=== PATIENT | male | born 1955 | race Caucasian/White ===

== ENCOUNTER → 2016-10-20 | Outpatient (CLI) | payer BC ==
[2016-10-20 09:42] LABS: ALT/SGPT 29 U/L (12-78); AST/SGOT 14 U/L (15-37); BLOOD UREA NITROGEN 12 mg/dl (7-18); BUN/CREATININE RATIO 13.7 (10-20); CALCIUM 8.6 mg/dl (8.5-10.1); CARBON DIOXIDE 28 mmol/L (21-32); CHLORIDE 109 mmol/L (98-107); CREATININE 0.88 mg/dl (0.60-1.40); GLUCOSE 104 mg/dl (70-99); POTASSIUM 4.1 mmol/L (3.5-5.1); SODIUM 142 mmol/L (136-145)
[2016-10-20 09:47] LABS: CHOLESTEROL 187 mg/dl (0-200); CHOLESTEROL/HDL RATIO 3.5; HDL CHOLESTEROL 53 mg/dl; LDL CHOLESTEROL CALCULATED 114 mg/dl; TRIGLYCERIDES 102 mg/dl (0-150); VERY LOW DENSITY LIPOPROT CALC 20 mg/dl
[2016-10-20 10:03] LABS: ESTIMATED AVERAGE GLUCOSE 123 mg/dl; HA1C FLAG Normal (Normal)
== END | disposition home or self-care (01) ==
LOC: C.LAB 07:06
PROVIDERS: ATTEND Internal Medicine
DX: R73.01 Impaired fasting glucose (principal); E78.5 Hyperlipidemia, unspecified; Z12.5 Encounter for screening for malignant neoplasm of prostate

== ENCOUNTER → 2016-10-24 | Outpatient (CLI) | payer BC ==
--- NOTE | 2016-10-24 08:50 | DIAGNOSTIC IMAGING REPORT ---
CHEST 2 VIEWS ROUTINE HISTORY: Cough. COMPARISON: None. FINDINGS: The lungs are clear. Cardiac silhouette is normal in size. No pleural effusions. No pneumothorax. IMPRESSION: No acute process. Electronically signed by: Johnny Tian M.D. 10/24/2016 8:49 AM Dictated Date/Time: 10/24/2016 8:47 AM
== END | disposition home or self-care (01) ==
LOC: C.RAD1850 08:29
PROVIDERS: ATTEND Internal Medicine
DX: R05 Cough (principal)

== ENCOUNTER 2024-05-02 15:19 | Observation (INO) ==
[2024-05-02 15:51] LABS: Basophils # (auto) 0.03 K/uL (0.00-0.20); Basophils % (auto) 0.7 %; Eosinophils # (auto) 0.17 K/uL (0.00-0.50); Eosinophils % (auto) 4.2 %; Hematocrit (blood only) 44.7 % (42.0-52.0); Hemoglobin 15.2 g/dl (14.0-18.0); Immature Granulocytes # (auto) 0.01 K/uL (0.01-0.20); Immature Granulocytes % (auto) 0.2 %; Lymphocytes # (auto) 0.96 K/uL (1.20-3.40); Lymphocytes % (auto) 23.6 %; Mean Corpuscular Hemoglobin 32.1 pg (25.0-34.0); Mean Corpuscular Volume 94.3 fL (80.0-100.0); Mean Platelet Volume 9.6 fL (9.4-12.4); Monocytes # (auto) 0.49 K/uL (0.11-0.59); Monocytes % (auto) 12.1 %; Neutrophils % (auto) 59.2 %; Platelet Count 215 K/uL (130-400); RDW Coefficient of Variation 12.3 % (11.5-14.5); Red Blood Count 4.74 M/uL (4.70-6.10); White Blood Count 4.06 K/ul (4.8-10.8)
--- NOTE | 2024-05-02 16:02 | XRay Report ---
XR chest 1V not portable HISTORY: 68 years-old Male Chest pain, nonspecific COMPARISON: 11/15/2021 TECHNIQUE: PA view the chest FINDINGS: Cardiac silhouette is normal in size. Lungs appear clear. No pneumothorax or pleural effusion. Spondy lotic spurring of the spine. IMPRESSION: No acute process of the chest. ACT 112: Negative or not required by law. The above report was generated using voice recognition software. It may contain grammatical, syntax o r spelling errors. Electronically signed by: Chang Sarmiento M.D. 05/02/2024 3:58 PM
[2024-05-02 16:06] LABS: Albumin Globulin Ratio 1.7 (0.9-2); BUN Creatinine Ratio 18.6 (10-20); Bilirubin,Total 0.5 mg/dl (0.2-1.0); Calcium 9.2 mg/dl (8.6-10.3); Creatinine Clr Calc Pharmacy 81.1 ml/min; Globulin 2.4 gm/dl (2.5-4.0); Potassium 4.6 mmol/L (3.5-5.1); Total Protein 6.4 gm/dl (6.0-8.3)
[2024-05-02 16:12] LABS: Troponin I High Sensitivity 8.9 pg/ml (0-20)
[2024-05-02 16:15] LABS: Partial Thromboplastin Time 26 Seconds (21-31); Prothrombin Time 10.7 Seconds (9.0-12.0)
[2024-05-02 17:25] LABS: D Dimer 220 ug/L FEU (0-500)
[2024-05-02] MEDS: OPTIRAY 320 100ml IV ONE (17:38)
--- NOTE | 2024-05-02 17:52 | CT Scan Report ---
EXAM: CT Abdomen and Pelvis With Intravenous Contrast INDICATION: Intermittent upper abdominal pain. TECHNIQUE: Axial computed tomography images of the abdomen and pelvis with intravenous contrast. Sagittal and coronal reformatted images were created and reviewed. This CT exam was performed using one or more of the following dose reduction techniques: automated exposure control, adjustment of the mA and/or kV according to patient size, and/or use of iterative reconstruction technique. CONTRAST: 94ml of Optiray 320 was administered intravenously. COMPARISON: 11/01/2021 FINDINGS: Limitations: None. Lung bases: No abnormality noted. Pleural space: No visualized pleural effusion or pneumothorax. Heart: No abnormality noted. Mediastinum: No abnormality noted. ABDOMEN: Liver: No abnormality noted. Gallbladder and bile ducts: The gallbladder is mildly distended and thickened. There is mild thickening of the common bile duct without distention. No no calcified stones in the gallbladder or common bile duct. Pancreas: Homogeneous enhancement. No mass, inflammation or ductal dilation. Spleen: No significant abnormality noted. Adrenals: No significant abnormality noted. Kidneys and ureters: Simple bilateral renal cysts noted. No follow-up necessary. No stones or hydronephrosis. Mild bilateral renal cortical scarring. No stones or hydronephrosis. Stomach and bowel: Moderate amounts of colonic stool in the redundant colon. No obstruction, inflammation or intestinal thickening. PELVIS: Appendix: No findings to suggest acute appendicitis. Bladder: No filling defects to suggest mass or large stone. No inflammation. Reproductive: No abnormalities noted. ABDOMEN and PELVIS: Intraperitoneal space: No free air. No significant fluid collection. Bones/joints: Intact posterior L3-S1 spinal fusion rods and pedicle screws. Degenerative changes noted in the spine. No acute osseous abnormality. Soft tissues: No significant abnormality noted. Vasculature: There is mild atherosclerotic calcification in the ectatic aorta and branches. No aneurysm or dissection. Lymph nodes: No pathologically enlarged lymph nodes. IMPRESSION: 1. Abnormal gallbladder and common bile duct most concerning for acute cholecystitis and possible cholangitis. Ultrasound recommended to further assess. 2. Moderate stool throughout the redundant colon without obstruction. ACT 112: Negative or not required by law. Electronically signed by Radha Renteria 05-02-2024 5:51 PM
--- NOTE | 2024-05-02 21:21 | Ultrasound Report ---
Exam(s): US GALLBLADDER EXAM: US Abdomen Limited, Right Upper Quadrant CLINICAL HISTORY: Reason for exam: ro manny. TECHNIQUE: Real-time ultrasound of the right upper quadrant with image documentation. COMPARISON: CT May 02, 2024 FINDINGS: Liver: Unremarkable. No mass. Gallbladder: Gallbladder is distended with mild mucosal thickening. No sonographically evident stone. Negative Rucker's. Common bile duct: Common bile duct is 4 mm. Pancreas: Pancreas is obscured by shadowing bowel gas. Right kidney: Unremarkable. No hydronephrosis. IMPRESSION: Gallbladder is distended with mild mucosal thickening. No sonographically evident stone. Negative Rucker's. Electronically signed by: Arash Rodriguez MD 05/02/24 21:20 PM
--- NOTE | 2024-05-02 21:46 | History & Physical Report ---
Date of Service May 02, 2024 Assessment & Plan (1) Abdominal pain: Plan: 68yo male with history of HTN, HLP and impaired fasting glucose presenting with 8 days of intermittent abdominal pain with radiation into the chest. Labs are unremarkable including no leukocytosis, normal LFTs. Exam with some mild lower abdominal tenderness. No RUQ pain. No epigastric pain. Imaging findings as above - some concern for abnormal appearing CBD and gallbladder noted on CT. No abnormalities noted on US. Ddx to consider include GERD, biliary dyskinesia, ?constipation/gas pains. Do not feel that this discomfort is cardiac - troponin x 1 is NEGATIVE with 8 days of intermittent symptoms, EKG is unremarkable. -Observation to medical -Repeat troponin, BMP/CBC and LFTs in AM -Initiate Protonix 40mg po daily -Initiate Simethicone PRN -Bowel regimen with Miralax PRN -Tylenol PRN pain -GI consultation appreciated - ?additional imaging studies needed- MRCP vs HIDA?. Some concern that patient notes 4# weight loss with onset of these symptoms (2) Hypertension: Plan: Managed with diet -Continue to monitor -Pain control as needed (3) Hyperlipidemia: Plan: Managed with diet. History of Present Illness Chief Complaint: abdominal pain, chest discomfort Primary Care Provider: Derick Collins MD Chinedu Das is a pleasant 68yo male with history of HTN, HLP and impaired fasting glucose presenting with abdominal pain, bloating. Patient reports that over the last 8 days he has been experiencing frequent episodes of lower abdominal discomfort which he feels to be gas pains. The discomfort at times involves his left chest, shoulder and arm as well. Discomfort in his chest is described as a squeezing pressure sensation, some shortness of breath associated with the discomfort. He has had increased eructation as well. These episodes have been occurring multiple times per day over the last 8 days. The severe pain lasts appx 5-10 minutes with complete resolution of discomfort typically within 1-2 hours. Symptoms typically occur when laying down but can occur any time during the day. No clear association to meals. Patient reports normal appetite and no change in PO intake - eats [id number] calories per day Denies nausea, vomiting or diarrhea No recent GI illness but has had some mild URI symptoms - congestion ongoing for the last 2 weeks. He has had some constipation - last BM was yesterday. No new medications or supplements. He does report approximately 4# of unintentional weight loss over the last 8 days. This evening patient had severe pain in the abdomen and left chest and was unable to walk due to his discomfort. Now improved, no return of the pain since being in the ER. is at bedside and is concerned about patient going home this evening given the severity of the pain he had earlier today. Allergies Allergy/AdvReac Type Severity Reaction Status Date / Time amoxicillin [From Augmentin] AdvReac Intermediate nausea & Verified 05/02/24 14:41 vomiting clavulanic acid AdvReac Intermediate nausea & Verified 05/02/24 14:41 [From Augmentin] vomiting Home Medications Medication Instructions Recorded Confirmed Type acetaminophen 500 mg tablet 500 - 1,000 mg PO DAILY PRN pain 02/12/23 05/02/24 History ibuprofen 200 mg tablet (Advil) 200 - 400 mg PO DAILY PRN Pain 02/12/23 05/02/24 History Antacid 1 tab PO DIRECTED PRN heart burn 05/02/24 05/02/24 History Past Med/Surg History Problem List Abdominal pain Osteoarthritis (Acute) Impaired fasting glucose (Acute) Per PCP records Hypertension (Acute) Per PCP records Hyperlipidemia (Acute) Per PCP records Lumbar stenosis with neurogenic claudication Moderate to severe at L3-4 Neurogenic claudication Scoliosis Osteoporosis Vitamin D deficiency Encounter for pre-operative examination History of colon polyps Rotator cuff arthropathy Biceps tendon rupture, proximal Right groin hernia Arthritis Back problem Status post lumbar spinal fusion L3-S1 laminectomy and fusion 01/31/2022 Dr. [facility] Medical History Right sided abdominal pain Right flank pain Low vitamin B12 level Retinal detachment Surgical History H/O right inguinal hernia repair (11/10/21) Open Right Inguinal Hernia Repair With Mesh(Right) - Korey Arcos MD, FACS Hx of colonoscopy with polypectomy S/P epidural steroid injection [place] teeth removed H/O eye surgery BILATERAL TO "FIX FLOATERS" H/O right knee surgery H/O eye surgery RT History of detached retina repair LT H/O bilateral cataract extraction Family History Grandfather (Maternal) Myocardial infarction Father Prostate cancer Cerebral artery occlusion Mother Alzheimer disease Dementia Other No family history of adverse response to anesthesia Denies family history of Colon cancer Ovarian cancer Breast cancer Social History Smoking Status: Light tobacco smoker Tobacco Type: Pipe Cigarettes Per Day: CIGAR USE 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; Second Hand Exposure: Yes; Do You Dip or Chew Tobacco: No; Hx Alcohol Use: Yes Alcohol type: wine Alcohol type Comment: 1-2 liters a week Alcohol Intake Frequency: 4 or More x per/Week Alcohol Intake Frequency Comment: socially Hx Substance Use: No Preferred Language: Grenadian Communication Ability: Effective Visual Impairment: No Limitations Hearing Ability: Normal [employer] Operator Required: No Beliefs That Will Affect Care: None marital status: Current Living Situation: Spouse current occupational status: retired current occupation: Works for [employer] at a [place] job How many Children do You have: 1 Feels Safe at Home: Yes Safety Concerns: Feels Safe At This Time Childhood Exposure to Second-Hand Smoke: Yes Diet: regular during the past year weight has: decreased > 10 lbs Dental Care, Regularly: Yes Physical Activity Frequency: 5-6 Times per Week Seatbelt Use: always Sunscreen Use: No Assistive Devices: Glasses Review of Systems Review of Systems: All systems reviewed & are unremarkable except as noted in HPI & below Physical Exam Physical Exam: General: patient resting comfortably, NAD, non-toxic in appearance, AA&O x 4 Skin: warm, dry, intact, no rashes or lesions HEENT: NC/AT, PERRL, EOMI, anicteric sclera, conjunctiva without injection, external ear normal to inspection and nontender, nares patent, moist mucus membranes, dentition intact, no oropharyngeal lesions, neck supple, trachea midline, no LAD, no thyromegaly, no JVD Heart: +S1/S2, regular, no m/r/g Lungs: equal air entry bilaterally, no rales/rhonchi/wheezes Abd: +BS, soft, ND, mildly tender to palpation in lower abdomen RLQ/LLQ without rebound/guarding/peritonitis, no masses/organomegaly/ascites Ext: warm, 2+ pulses in UE/LE bilaterally, no clubbing/cyanosis or edema Neuro: nonfocal, patient AA&O x 4, speech intact, no facial droop, moving all extremities on command with equal strength 5/5 Results & Data Results & Data Vital Signs (Past 12 Hours) Vital Signs Temp Pulse Pulse Resp BP BP Pulse Ox 05/02/24 21:33 56 L 14 126/87 98 05/02/24 20:30 60 05/02/24 20:00 75 20 129/85 99 05/02/24 19:00 62 16 109/73 98 05/02/24 17:19 63 16 133/76 97 05/02/24 16:47 58 L 20 95 05/02/24 16:04 54 L 05/02/24 15:23 36.4 C L 60 18 140/87 97 O2 Del Method 05/02/24 21:33 Room Air 05/02/24 20:30 05/02/24 20:00 Room Air 05/02/24 19:00 Room Air 05/02/24 17:19 Room Air 05/02/24 16:47 Room Air 05/02/24 16:04 05/02/24 15:23 Room Air Laboratory Results Laboratory Results WBC 4.06 K/ul (4.8-10.8) L 05/02/24 15:30 RBC 4.74 M/uL (4.70-6.10) 05/02/24 15:30 Hgb 15.2 g/dl (14.0-18.0) 05/02/24 15:30 Hct 44.7 % (42.0-52.0) 05/02/24 15:30 MCV 94.3 fL (80.0-100.0) 05/02/24 15:30 MCH 32.1 pg (25.0-34.0) 05/02/24 15:30 MCHC 34.0 g/dL (32.0-36.0) 05/02/24 15:30 RDW Std Deviation 43.0 fL (36.4-46.3) 05/02/24 15:30 RDW Coeff of Soheila 12.3 % (11.5-14.5) 05/02/24 15:30 Plt Count 215 K/uL (130-400) 05/02/24 15:30 MPV 9.6 fL (9.4-12.4) 05/02/24 15:30 Immature Gran % (Auto) 0.2 % 05/02/24 15:30 Neut % (Auto) 59.2 % 05/02/24 15:30 Lymph % (Auto) 23.6 % 05/02/24 15:30 [place] % (Auto) 12.1 % 05/02/24 15:30 Eos % (Auto) 4.2 % 05/02/24 15:30 Baso % (Auto) 0.7 % 05/02/24 15:30 Neut # (Auto) 2.40 K/uL (1.40-6.50) 05/02/24 15:30 Lymph # (Auto) 0.96 K/uL (1.20-3.40) L 05/02/24 15:30 [place] # (Auto) 0.49 K/uL (0.11-0.59) 05/02/24 15:30 Eos # (Auto) 0.17 K/uL (0.00-0.50) 05/02/24 15:30 Baso # (Auto) 0.03 K/uL (0.00-0.20) 05/02/24 15:30 Immature Gran # (Auto) 0.01 K/uL (0.01-0.20) 05/02/24 15:30 PT 10.7 Seconds (9.0-12.0) 05/02/24 15:30 INR 1.0 (0.9-1.1) 05/02/24 15:30 APTT 26 Seconds (21-31) 05/02/24 15:30 PTT Ratio 1.0 05/02/24 15:30 D-Dimer 220 ug/L FEU (0-500) 05/02/24 15:30 Sodium 139 mmol/L (136-145) 05/02/24 15:30 Potassium 4.6 mmol/L (3.5-5.1) 05/02/24 15:30 Chloride 106 mmol/L (98-107) 05/02/24 15:30 Carbon Dioxide 28 mmol/L (21-32) 05/02/24 15:30 Anion Gap 5 (3-11) 05/02/24 15:30 BUN 16 mg/dl (6-23) 05/02/24 15:30 Creatinine 0.86 mg/dl (0.6-1.4) 05/02/24 15:30 Est Cr Clr Drug Dosing 81.1 ml/min 05/02/24 15:30 eGFR 93.73 05/02/24 15:30 BUN/Creatinine Ratio 18.6 (10-20) 05/02/24 15:30 Glucose 97 mg/dl (70-99(Fasting)) 05/02/24 15:30 Calcium 9.2 mg/dl (8.6-10.3) 05/02/24 15:30 Total Bilirubin 0.5 mg/dl (0.2-1.0) 05/02/24 15:30 AST 16 U/L (13-39) 05/02/24 15:30 ALT 15 U/L (7-52) 05/02/24 15:30 Alkaline Phosphatase 50 U/L (34-104) 05/02/24 15:30 Troponin I High Sens 8.9 pg/ml (0-20) 05/02/24 15:30 Total Protein 6.4 gm/dl (6.0-8.3) 05/02/24 15:30 Albumin 4.0 gm/dl (3.4-5.0) 05/02/24 15:30 Globulin 2.4 gm/dl (2.5-4.0) L 05/02/24 15:30 Albumin/Globulin Ratio 1.7 (0.9-2) 05/02/24 15:30 Impressions Chest X-Ray 05/02/24 15:26 XR chest 1V not portable HISTORY: 68 years-old Male Chest pain, nonspecific COMPARISON: 11/15/2021 TECHNIQUE: PA view the chest FINDINGS: Cardiac silhouette is normal in size. Lungs appear clear. No pneumothorax or pleural effusion. Spondylotic spurring of the spine. IMPRESSION: No acute process of the chest. ACT 112: Negative or not required by law. The above report was generated using voice recognition software. It may contain grammatical, syntax or spelling errors. Electronically signed by: Chang Sarmiento M.D. 05/02/2024 3:58 PM Abdomen/Pelvis CT 05/02/24 16:49 EXAM: CT Abdomen and Pelvis With Intravenous Contrast INDICATION: Intermittent upper abdominal pain. TECHNIQUE: Axial computed tomography images of the abdomen and pelvis with intravenous contrast. Sagittal and coronal reformatted images were created and reviewed. This CT exam was performed using one or more of the following dose reduction techniques: automated exposure control, adjustment of the mA and/or kV according to patient size, and/or use of iterative reconstruction technique. CONTRAST: 94ml of Optiray 320 was administered intravenously. COMPARISON: 11/01/2021 FINDINGS: Limitations: None. Lung bases: No abnormality noted. Pleural space: No visualized pleural effusion or pneumothorax. Heart: No abnormality noted. Mediastinum: No abnormality noted. ABDOMEN: Liver: No abnormality noted. Gallbladder and bile ducts: The gallbladder is mildly distended and thickened. There is mild thickening of the common bile duct without distention. No no calcified stones in the gallbladder or common bile duct. Pancreas: Homogeneous enhancement. No mass, inflammation or ductal dilation. Spleen: No significant abnormality noted. Adrenals: No significant abnormality noted. Kidneys and ureters: Simple bilateral renal cysts noted. No follow-up necessary. No stones or hydronephrosis. Mild bilateral renal cortical scarring. No stones or hydronephrosis. Stomach and bowel: Moderate amounts of colonic stool in the redundant colon. No obstruction, inflammation or intestinal thickening. PELVIS: Appendix: No findings to suggest acute appendicitis. Bladder: No filling defects to suggest mass or large stone. No inflammation. Reproductive: No abnormalities noted. ABDOMEN and PELVIS: Intraperitoneal space: No free air. No significant fluid collection. Bones/joints: Intact posterior L3-S1 spinal fusion rods and pedicle screws. Degenerative changes noted in the spine. No acute osseous abnormality. Soft tissues: No significant abnormality noted. Vasculature: There is mild atherosclerotic calcification in the ectatic aorta and branches. No aneurysm or dissection. Lymph nodes: No pathologically enlarged lymph nodes. IMPRESSION: 1. Abnormal gallbladder and common bile duct most concerning for acute cholecystitis and possible cholangitis. Ultrasound recommended to further assess. 2. Moderate stool throughout the redundant colon without obstruction. ACT 112: Negative or not required by law. Electronically signed by Radha Renteria 05-02-2024 5:51 PM Gallbladder Ultrasound 05/02/24 18:04 Exam(s): US GALLBLADDER EXAM: US Abdomen Limited, Right Upper Quadrant CLINICAL HISTORY: Reason for exam: ro manny. TECHNIQUE: Real-time ultrasound of the right upper quadrant with image documentation. COMPARISON: CT May 02, 2024 FINDINGS: Liver: Unremarkable. No mass. Gallbladder: Gallbladder is distended with mild mucosal thickening. No sonographically evident stone. Negative Rucker's. Common bile duct: Common bile duct is 4 mm. Pancreas: Pancreas is obscured by shadowing bowel gas. Right kidney: Unremarkable. No hydronephrosis. IMPRESSION: Gallbladder is distended with mild mucosal thickening. No sonographically evident stone. Negative Rucker's. Electronically signed by: Arash Rodriguez MD 05/02/24 21:20 PM PG Care Time/CCT Total # of Minutes Spent Total Time Spent with Patient: Total time spent is greater than 50% in coordination of care (as documented) at patient's floor/unit and/or counseling patient: Coding Level of Care Code 65169 INT INP/OBS CARE 2/55MIN Diagnoses Abdominal pain R10.9 Hypertension I10 Hyperlipidemia E78.5
[2024-05-02] MEDS ORDERED: ONDANSETRON INJ 2 MG/ML 2 ML VIAL IV PRN (23:21)
[2024-05-02] MEDS: POLYETHYLENE (MIRALAX) 17 GM PACK PO STA (23:47)
[2024-05-02] MEDS: SIMETHICONE 80 MG CHEW PO PRN (23:47)
[2024-05-02] MEDS: ACETAMINOPHEN 325 MG TAB PO PRN (23:47)
--- NOTE | 2024-05-03 00:01 | Emergency Department Note ---
History of Present Illness General Chief Complaint: Chest Pain Stated Complaint: LT CHEST PAIN, ABD PAIN, LT SHOULDER PAIN Time Seen by Provider: 05/02/24 16:23 History of Present Illness Provider Complaint: abdominal pain Onset (ago): 1 week(s) Pain Consistency: intermittent Location: LLQ Radiation: chest Severity: moderate Maximum Pain Intensity: 4 Current Pain Intensity: 4 Quality: + stabbing and + sharp Relieved By: + nothing Exacerbated By: + nothing Context: no foreign travel, no possible food poisoning, no sick contacts, no recent antibiotic use, no recent surgery/procedure or no recent injury Associated Symptoms: + chest pain and + breathing difficulty; no nausea, no vomiting, no diarrhea, no fever, no chills, no constipation, no dysuria, no hematemesis, no melena, no hematuria and no back pain Home Medications Medication Instructions Recorded Confirmed Type acetaminophen 500 mg tablet 500 - 1,000 mg PO DAILY PRN pain 02/12/23 05/02/24 History ibuprofen 200 mg tablet (Advil) 200 - 400 mg PO DAILY PRN Pain 02/12/23 05/02/24 History Antacid 1 tab PO DIRECTED PRN heart burn 05/02/24 05/02/24 History Allergies Allergy/AdvReac Type Severity Reaction Status Date / Time amoxicillin [From Augmentin] AdvReac Intermediate nausea & Verified 05/02/24 14:41 vomiting clavulanic acid AdvReac Intermediate nausea & Verified 05/02/24 14:41 [From Augmentin] vomiting Past Med/Surg History Problem List Abdominal pain (Acute) Chest pain (Acute) Abdominal pain Osteoarthritis (Acute) Impaired fasting glucose (Acute) Per PCP records Hypertension (Acute) Per PCP records Hyperlipidemia (Acute) Per PCP records Lumbar stenosis with neurogenic claudication Moderate to severe at L3-4 Neurogenic claudication Scoliosis Osteoporosis Vitamin D deficiency Encounter for pre-operative examination History of colon polyps Rotator cuff arthropathy Biceps tendon rupture, proximal Right groin hernia Arthritis Back problem Status post lumbar spinal fusion L3-S1 laminectomy and fusion 01/31/2022 Dr. Kimble [facility] Medical History Right sided abdominal pain Right flank pain Low vitamin B12 level Retinal detachment Surgical History H/O right inguinal hernia repair (11/10/21) Open Right Inguinal Hernia Repair With Mesh(Right) - Korey Arcos MD, FACS Hx of colonoscopy with polypectomy S/P epidural steroid injection [place] teeth removed H/O eye surgery BILATERAL TO "FIX FLOATERS" H/O right knee surgery H/O eye surgery RT History of detached retina repair LT H/O bilateral cataract extraction Family History Grandfather (Maternal) Myocardial infarction Father Prostate cancer Cerebral artery occlusion Mother Alzheimer disease Dementia Other No family history of adverse response to anesthesia Denies family history of Colon cancer Ovarian cancer Breast cancer Social History Smoking Status: Light tobacco smoker Tobacco Type: Pipe Cigarettes Per Day: CIGAR USE 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; Second Hand Exposure: Yes; Do You Dip or Chew Tobacco: No; Hx Alcohol Use: Yes Alcohol type: wine Alcohol type Comment: 1-2 liters a week Alcohol Intake Frequency: 4 or More x per/Week Alcohol Intake Frequency Comment: socially Hx Substance Use: No Preferred Language: Lithuanian Communication Ability: Effective Visual Impairment: No Limitations Hearing Ability: Normal Termite Renewal Inspector Required: No Beliefs That Will Affect Care: None marital status: Current Living Situation: Spouse current occupational status: retired current occupation: Works for [employer] at a [employer] job How many Children do You have: 1 Feels Safe at Home: Yes Safety Concerns: Feels Safe At This Time Childhood Exposure to Second-Hand Smoke: Yes Diet: regular during the past year weight has: decreased > 10 lbs Dental Care, Regularly: Yes Physical Activity Frequency: 5-6 Times per Week Seatbelt Use: always Sunscreen Use: No Assistive Devices: Glasses Physical Exam 2 Vital Signs: Vital Signs - 24 hr 05/02/24 15:23 05/02/24 16:04 05/02/24 16:47 Temperature 36.4 C L Temperature Source Temporal Artery Sc an Pulse Rate 60 54 L 58 L Pulse Rate [Apical ] Pulse Rhythm [Apic al] Pulse Strength [Ap ical] Respiratory Rate 18 20 Respiratory Effort / Characteristics Non-Labored Sponta neous Respiratory Depth Normal Respiratory Patter n Regular Blood Pressure 140/87 Blood Pressure [Ri ght Arm] Blood Pressure Neha n 104 Blood Pressure Neha n [Right Arm] Blood Pressure Pos ition [Right Arm] Pulse Oximetry 97 95 Oxygen Delivery Me thod Room Air Room Air Sepsis Recent Feve r Within 48 Hours No Sepsis New/Unexpla ined Change in Men casi Status N/A Sepsis Action Take n by Nursing No Action Required 05/02/24 17:19 05/02/24 19:00 05/02/24 20:00 Temperature Temperature Source Pulse Rate Pulse Rate [Apical ] 63 62 75 Pulse Rhythm [Apic al] Regular Pulse Strength [Ap ical] Normal Respiratory Rate 16 16 20 Respiratory Effort / Characteristics Non-Labored Non-Labored Non-Labored Respiratory Depth Normal Normal Normal Respiratory Patter n Regular Regular Regular Blood Pressure Blood Pressure [Ri ght Arm] 133/76 109/73 129/85 Blood Pressure Neha n Blood Pressure Neha n [Right Arm] 95 85 99 Blood Pressure Pos ition [Right Arm] Lying Pulse Oximetry 97 98 99 Oxygen Delivery Me thod Room Air Room Air Room Air Sepsis Recent Feve r Within 48 Hours Sepsis New/Unexpla ined Change in Men casi Status Sepsis Action Take n by Nursing 05/02/24 20:30 05/02/24 21:33 Temperature Temperature Source Pulse Rate 60 56 L Pulse Rate [Apical ] Pulse Rhythm [Apic al] Pulse Strength [Ap ical] Respiratory Rate 14 Respiratory Effort / Characteristics Respiratory Depth Respiratory Patter n Blood Pressure 126/87 Blood Pressure [Ri ght Arm] Blood Pressure Neha n 100 Blood Pressure Neha n [Right Arm] Blood Pressure Pos ition [Right Arm] Pulse Oximetry 98 Oxygen Delivery Me thod Room Air Sepsis Recent Feve r Within 48 Hours Sepsis New/Unexpla ined Change in Men casi Status Sepsis Action Take n by Nursing Physical Exam: Physical Exam GENERAL: oriented to person, place, and time. appears well-developed and well- nourished. She does not appear distressed. HENT: Exam performed. -Head: Normocephalic and atraumatic. -Right Ear: External ear normal. No mastoid erythema -Left Ear: External ear normal. No mastoid erythema -Mouth/Throat: The oropharynx is clear and moist. No trismus in the jaw. No dental abscesses or uvula swelling. No oropharyngeal exudate or tonsillar abscesses. EYES: Conjunctivae and EOM are normal.Right eye exhibits no discharge. Left eye exhibits no discharge. No scleral icterus. NECK: Normal range of motion. Neck supple. No JVD present. No tracheal deviation and normal range of motion present. CV: Normal rate, regular rhythm, normal heart sounds and intact distal pulses. There is no peripheral edema. Palpable radial pulses bue. PULM/CHEST: Effort normal and breath sounds normal. No respiratory distress. No stridor. no wheezes.no rales. -Chest Wall: no tenderness to palpation ABD: The abdomen is soft. Bowel sounds are normal. no distension. No mass is present. There is tenderness to palpation of left lower quadrant. There is no rebound, no guarding, no Rucker's sign and no tenderness at McBurney's point. Rovsig negative MUSC/SKEL: Normal range of motion. There is no peripheral edema, tenderness or deformity. NEURO: Motor and sensation grossly intact. SKIN: Skin is warm and dry. not diaphoretic. PSYCH: normal mood and affect. Behavior is normal. Judgment and thought content normal. Course Course 1623: The patient was evaluated in room . A complete history and physical exam was performed Cardiac monitoring: An order was placed for continuous cardiac monitoring. The monitor shows a rate of 60 with sinus rhythm interpreted by me 1800: Vital signs stable. Labs unremarkable. Imaging makes note that there is a possibility of cholecystitis versus cholangitis. Patient not having any right upper quadrant abdominal pain and LFTs are within normal limits no jaundice. Will obtain ultrasound of the right upper quadrant. 2100: Vital signs stable. Right upper quadrant ultrasound viewed by me shows no cholecystitis. Patient was offered inpatient observation versus outpatient follow-up with GI and cardiology. After long discussion, and patient elected to be admitted for inpatient evaluation by cardiology and GI. Administered Medications Acetaminophen (Acetaminophen 325 Mg Tab) 650 mg PO Q4H PRN PRN Reason: Pain or Fever Stop: 06/01/24 23:20 Last Admin: 05/02/24 23:47 Dose: 650 mg Documented By: JHONATAN Simethicone (Simethicone 80 Mg Chew) 80 mg PO Q6H PRN PRN Reason: Flatulence Stop: 06/01/24 23:20 Last Admin: 05/02/24 23:47 Dose: 80 mg Documented By: JHONATAN Discontinued Medications Ioversol (Optiray 320 100ml) 94 ml IV ONCE ONE Stop: 05/02/24 17:39 Last Admin: 05/02/24 17:38 Dose: 94 ml Documented By: SONY Polyethylene Glycol (Polyethylene (Miralax) 17 Gm Pack) 17 gm PO NOW STA Stop: 05/02/24 23:22 Last Admin: 05/02/24 23:47 Dose: 17 gm Documented By: JHONATAN Medical Decision Making Laboratory Data Attestation: I reviewed the patient's lab results. 05/02/24 15:30 05/02/24 15:30 Lab Results 05/02/24 Range/Units 15:30 WBC 4.06 L (4.8-10.8) K/ul RBC 4.74 (4.70-6.10) M/uL Hgb 15.2 (14.0-18.0) g/dl Hct 44.7 (42.0-52.0) % MCV 94.3 (80.0-100.0) fL MCH 32.1 (25.0-34.0) pg MCHC 34.0 (32.0-36.0) g/dL RDW Std Deviation 43.0 (36.4-46.3) fL RDW Coeff of Soheila 12.3 (11.5-14.5) % Plt Count 215 (130-400) K/uL MPV 9.6 (9.4-12.4) fL Immature Gran % (Auto) 0.2 % Neut % (Auto) 59.2 % Lymph % (Auto) 23.6 % [place] % (Auto) 12.1 % Eos % (Auto) 4.2 % Baso % (Auto) 0.7 % Neut # (Auto) 2.40 (1.40-6.50) K/uL Lymph # (Auto) 0.96 L (1.20-3.40) K/uL [place] # (Auto) 0.49 (0.11-0.59) K/uL Eos # (Auto) 0.17 (0.00-0.50) K/uL Baso # (Auto) 0.03 (0.00-0.20) K/uL Immature Gran # (Auto) 0.01 (0.01-0.20) K/uL PT 10.7 (9.0-12.0) Seconds INR 1.0 (0.9-1.1) APTT 26 (21-31) Seconds PTT Ratio 1.0 D-Dimer 220 (0-500) ug/L FEU Sodium 139 (136-145) mmol/L Potassium 4.6 (3.5-5.1) mmol/L Chloride 106 (98-107) mmol/L Carbon Dioxide 28 (21-32) mmol/L Anion Gap 5 (3-11) BUN 16 (6-23) mg/dl Creatinine 0.86 (0.6-1.4) mg/dl Est Cr Clr Drug Dosing 81.1 ml/min eGFR 93.73 BUN/Creatinine Ratio 18.6 (10-20) Glucose 97 (70-99(Fasting)) mg/dl Calcium 9.2 (8.6-10.3) mg/dl Total Bilirubin 0.5 (0.2-1.0) mg/dl AST 16 (13-39) U/L ALT 15 (7-52) U/L Alkaline Phosphatase 50 (34-104) U/L Troponin I High Sens 8.9 (0-20) pg/ml Total Protein 6.4 (6.0-8.3) gm/dl Albumin 4.0 (3.4-5.0) gm/dl Globulin 2.4 L (2.5-4.0) gm/dl Albumin/Globulin Ratio 1.7 (0.9-2) Imaging Data Attestation: I personally reviewed and interpreted this imaging study as follows: My Impression: Chest x-ray: Chest x-ray negative. Airway clear. No pneumothorax. No consolidation. No cardiomegaly or cephalization.. No free air under the diaphragm. No fractures of the skeletal structures. Gallbladder ultrasound: No gallstones or cholecystitis Radiologist's Impression: Chest X-Ray 05/02/24 15:26 XR chest 1V not portable HISTORY: 68 years-old Male Chest pain, nonspecific COMPARISON: 11/15/2021 TECHNIQUE: PA view the chest FINDINGS: Cardiac silhouette is normal in size. Lungs appear clear. No pneumothorax or pleural effusion. Spondylotic spurring of the spine. IMPRESSION: No acute process of the chest. ACT 112: Negative or not required by law. The above report was generated using voice recognition software. It may contain grammatical, syntax or spelling errors. Electronically signed by: Chang Sarmiento M.D. 05/02/2024 3:58 PM Abdomen/Pelvis CT 05/02/24 16:49 EXAM: CT Abdomen and Pelvis With Intravenous Contrast INDICATION: Intermittent upper abdominal pain. TECHNIQUE: Axial computed tomography images of the abdomen and pelvis with intravenous contrast. Sagittal and coronal reformatted images were created and reviewed. This CT exam was performed using one or more of the following dose reduction techniques: automated exposure control, adjustment of the mA and/or kV according to patient size, and/or use of iterative reconstruction technique. CONTRAST: 94ml of Optiray 320 was administered intravenously. COMPARISON: 11/01/2021 FINDINGS: Limitations: None. Lung bases: No abnormality noted. Pleural space: No visualized pleural effusion or pneumothorax. Heart: No abnormality noted. Mediastinum: No abnormality noted. ABDOMEN: Liver: No abnormality noted. Gallbladder and bile ducts: The gallbladder is mildly distended and thickened. There is mild thickening of the common bile duct without distention. No no calcified stones in the gallbladder or common bile duct. Pancreas: Homogeneous enhancement. No mass, inflammation or ductal dilation. Spleen: No significant abnormality noted. Adrenals: No significant abnormality noted. Kidneys and ureters: Simple bilateral renal cysts noted. No follow-up necessary. No stones or hydronephrosis. Mild bilateral renal cortical scarring. No stones or hydronephrosis. Stomach and bowel: Moderate amounts of colonic stool in the redundant colon. No obstruction, inflammation or intestinal thickening. PELVIS: Appendix: No findings to suggest acute appendicitis. Bladder: No filling defects to suggest mass or large stone. No inflammation. Reproductive: No abnormalities noted. ABDOMEN and PELVIS: Intraperitoneal space: No free air. No significant fluid collection. Bones/joints: Intact posterior L3-S1 spinal fusion rods and pedicle screws. Degenerative changes noted in the spine. No acute osseous abnormality. Soft tissues: No significant abnormality noted. Vasculature: There is mild atherosclerotic calcification in the ectatic aorta and branches. No aneurysm or dissection. Lymph nodes: No pathologically enlarged lymph nodes. IMPRESSION: 1. Abnormal gallbladder and common bile duct most concerning for acute cholecystitis and possible cholangitis. Ultrasound recommended to further assess. 2. Moderate stool throughout the redundant colon without obstruction. ACT 112: Negative or not required by law. Electronically signed by Radha Renteria 05-02-2024 5:51 PM Gallbladder Ultrasound 05/02/24 18:04 Exam(s): US GALLBLADDER EXAM: US Abdomen Limited, Right Upper Quadrant CLINICAL HISTORY: Reason for exam: ro manny. TECHNIQUE: Real-time ultrasound of the right upper quadrant with image documentation. COMPARISON: CT May 02, 2024 FINDINGS: Liver: Unremarkable. No mass. Gallbladder: Gallbladder is distended with mild mucosal thickening. No sonographically evident stone. Negative Rucker's. Common bile duct: Common bile duct is 4 mm. Pancreas: Pancreas is obscured by shadowing bowel gas. Right kidney: Unremarkable. No hydronephrosis. IMPRESSION: Gallbladder is distended with mild mucosal thickening. No sonographically evident stone. Negative Rucker's. Electronically signed by: Arash Rodriguez MD 05/02/24 21:20 PM ECG Data Attestation: I personally reviewed and interpreted this ECG as follows: Indication: abdominal pain and chest pain Rate (beats per minute): 55 Rhythm: sinus bradycardia Findings: no ST depression, no ST elevation or no prolonged QT Additional Comments: QRS 74 MDM Narrative 1623: The patient was evaluated in room . A complete history and physical exam was performed Cardiac monitoring: An order was placed for continuous cardiac monitoring. The monitor shows a rate of 60 with sinus rhythm interpreted by me 1800: Vital signs stable. Labs unremarkable. Imaging makes note that there is a possibility of cholecystitis versus cholangitis. Patient not having any right upper quadrant abdominal pain and LFTs are within normal limits no jaundice. Will obtain ultrasound of the right upper quadrant. 2100: Vital signs stable. Right upper quadrant ultrasound viewed by me shows no cholecystitis. Patient was offered inpatient observation versus outpatient follow-up with GI and cardiology. After long discussion, and patient elected to be admitted for inpatient evaluation by cardiology and GI. Impression & Plan Chest pain, Abdominal pain Discharge Plan Visit Data Chief Complaint: Chest Pain Stated Complaint: LT CHEST PAIN, ABD PAIN, LT SHOULDER PAIN ED Provider: Raúl Hamlin Discharge Problem: Chest pain, Abdominal pain Patient Disposition: Admitted As Inpatient Discharge Instructions Interventions: ED Discharge Assessment Last Done: 05/02/24 22:36 Discharge Problem: Chest pain Qualifiers: Chest pain type: unspecified Qualified Code(s): R07.9 - Chest pain, unspecified
[2024-05-03 07:15] LABS: Hematocrit (blood only) 43.4 % (42.0-52.0); Hemoglobin 14.6 g/dl (14.0-18.0); Mean Corpuscular Hemoglobin 31.1 pg (25.0-34.0); Mean Corpuscular Hgb Conc 33.6 g/dL (32.0-36.0); Mean Corpuscular Volume 92.5 fL (80.0-100.0); Mean Platelet Volume 9.6 fL (9.4-12.4); Platelet Count 198 K/uL (130-400); RDW Coefficient of Variation 12.4 % (11.5-14.5); RDW Standard Deviation 42.1 fL (36.4-46.3); Red Blood Count 4.69 M/uL (4.70-6.10); White Blood Count 5.45 K/ul (4.8-10.8)
[2024-05-03 07:38] LABS: Albumin Level 3.7 gm/dl (3.4-5.0); BUN Creatinine Ratio 16.7 (10-20); Bilirubin Direct 0.1 mg/dl (0-0.2); Bilirubin,Total 0.6 mg/dl (0.2-1.0); Calcium 8.9 mg/dl (8.6-10.3); Creatinine Clr Calc Pharmacy 116.2 ml/min; Potassium 3.8 mmol/L (3.5-5.1)
[2024-05-03 07:44] LABS: Troponin I High Sensitivity 6.9 pg/ml (0-20)
[2024-05-03] MEDS: PANTOprazole 40 MG TAB PO SCH (08:20)
[2024-05-03] MEDS: POLYETHYLENE (MIRALAX) 17 GM PACK PO SCH ×2 (08:20→20:10)
--- NOTE | 2024-05-03 08:54 | Electrocardiogram Report ---
Test Reason : Blood Pressure : */* mmHG Vent. Rate : 55 BPM Atrial Rate : 55 BPM P-R Int : 164 ms QRS Dur : 74 ms QT Int : 402 ms P-R-T Axes : 43 55 57 degrees QTcB Int : 384 ms Sinus bradycardia Otherwise normal ECG When compared with ECG of 08-Nov-2021 14:42, No significant change was found Confirmed by Pako Fay ([id number]) on 05/03/2024 8:54:01 AM Referred By: Confirmed By: Pako Fay
[2024-05-03 09:17] LABS: Thyroid Stimulating Hormone 1.354 uIu/ml (0.300-4.500)
--- NOTE | 2024-05-03 09:57 | Gastrointestinal Consultation ---
Date of Consultation May 03, 2024 Assessment & Plan (1) Abdominal pain: Pleasant man with irregular bowel movements and gas issues. It is not often that pain related to gas, bloating and bowel movement issues lead to hospitalization so I suspect there is more going on here. I do think some of his more minor issues are related to his gut irregularity but not the more severe issues without evidence of obstruction. He had a colonoscopy three years ago so I don't see the need to repeat one now. His gallbladder does appear abnormal on imaging studies so I guess acalculous cholecystitis could be an issue and HIDA scan may be warranted. However with his description of his chest pain along with the severity needing admission I would also consider cardiology consultation so they can decide whether cardiac testing is warranted. In the interim I will give him mag citrate to see if bowels move well and what that does for his symptoms. History of Present Illness Reason for Consultation: gas pains Attending Physician: Yuriy Huynh MD History of Present Illness 68 year old man who has been having issues with his gut since before . He has had problems with bowel movement irregularities in the past few years but he has recently developed problems with gurgling and cramping. Passing gas does relieve some of the issues as well as having bowel movements. On occasion he reports issues will be severe. He will have "gas pains" that go into his upper abdomen and then into his chest radiating to his neck and left shoulder. He does not vomit with this pain. He does not feel short of breath. He does have a lot of vigorous belching. He does not see blood in his stool. He does not take medication at home other than OTC meds. His last colonoscopy was three years ago by Dr. Grewal. He denies heartburn or indigestion. He has never had cardiac issues. CT shows "thickened gall bladder and bile duct" and increase amount of stool in the colon. Allergies Allergy/AdvReac Type Severity Reaction Status Date / Time amoxicillin [From Augmentin] AdvReac Intermediate nausea & Verified 05/02/24 14:41 vomiting clavulanic acid AdvReac Intermediate nausea & Verified 05/02/24 14:41 [From Augmentin] vomiting Home Medications Medication Instructions Recorded Confirmed Type acetaminophen 500 mg tablet 500 - 1,000 mg PO DAILY PRN pain 02/12/23 05/02/24 History ibuprofen 200 mg tablet (Advil) 200 - 400 mg PO DAILY PRN Pain 02/12/23 05/02/24 History Antacid 1 tab PO DIRECTED PRN heart burn 05/02/24 05/02/24 History Patient History Medical History Right sided abdominal pain Right flank pain Low vitamin B12 level Retinal detachment Surgical History H/O right inguinal hernia repair (11/10/21) Open Right Inguinal Hernia Repair With Mesh(Right) - Korey Arcos MD, FACS Hx of colonoscopy with polypectomy S/P epidural steroid injection [place] teeth removed H/O eye surgery BILATERAL TO "FIX FLOATERS" H/O right knee surgery H/O eye surgery RT History of detached retina repair LT H/O bilateral cataract extraction Family History Grandfather (Maternal) Myocardial infarction Father Prostate cancer Cerebral artery occlusion Mother Alzheimer disease Dementia Other No family history of adverse response to anesthesia Denies family history of Colon cancer Ovarian cancer Breast cancer Social History Smoking Status: Light tobacco smoker Tobacco Type: Pipe Cigarettes Per Day: CIGAR USE 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; Second Hand Exposure: Yes; Do You Dip or Chew Tobacco: No; Hx Alcohol Use: Yes Alcohol type: wine Alcohol type Comment: 1-2 liters a week Alcohol Intake Frequency: 4 or More x per/Week Alcohol Intake Frequency Comment: socially Hx Substance Use: No Preferred Language: [place] Communication Ability: Effective Visual Impairment: No Limitations Hearing Ability: Normal Construction Safety Consultant Required: No Beliefs That Will Affect Care: None marital status: Current Living Situation: Spouse current occupational status: retired current occupation: Works for [employer] at a [employer] job How many Children do You have: 1 Feels Safe at Home: Yes Safety Concerns: Feels Safe At This Time Childhood Exposure to Second-Hand Smoke: Yes Diet: regular during the past year weight has: decreased > 10 lbs Dental Care, Regularly: Yes Physical Activity Frequency: 5-6 Times per Week Seatbelt Use: always Sunscreen Use: No Assistive Devices: Glasses Review of Systems Review of Systems: All systems reviewed & are unremarkable except as noted in HPI & below Physical Exam Physical Exam: he looks comfortable Constitutional: WD/WN, vitals as above Neck: trachea midline, no thyromegaly Respiratory: normal respiratory effort, lungs clear to auscultation Cardiovascular: RRR, no murmur, no edema Gastrointestinal (Abdomen): normal bowel sounds, soft, nontender, no hepatosplenomegaly Results & Data Vital Signs (Past 12 Hours) Vital Signs Temp Pulse Pulse Pulse Resp BP BP 05/03/24 07:56 36.3 C L 65 17 115/73 05/03/24 07:27 36.5 C 48 L 16 117/22 L 05/02/24 23:08 36.3 C L 55 L 16 161/79 H 05/02/24 23:05 05/02/24 22:36 36.6 C 62 18 126/68 05/02/24 22:00 57 L 18 122/82 Pulse Ox O2 Del Method 05/03/24 07:56 96 Room Air 05/03/24 07:27 96 Room Air 05/02/24 23:08 95 Room Air 05/02/24 23:05 Room Air 05/02/24 22:36 99 Room Air 05/02/24 22:00 99 Room Air Laboratory Results 05/03/24 05/02/24 Range/Units 06:27 15:30 WBC 5.45 4.06 L (4.8-10.8) K/ul RBC 4.69 L 4.74 (4.70-6.10) M/uL Hgb 14.6 15.2 (14.0-18.0) g/dl Hct 43.4 44.7 (42.0-52.0) % MCV 92.5 94.3 (80.0-100.0) fL MCH 31.1 32.1 (25.0-34.0) pg MCHC 33.6 34.0 (32.0-36.0) g/dL RDW Std Deviation 42.1 43.0 (36.4-46.3) fL RDW Coeff of Soheila 12.4 12.3 (11.5-14.5) % Plt Count 198 215 (130-400) K/uL MPV 9.6 9.6 (9.4-12.4) fL Immature Gran % (Auto) 0.2 % Neut % (Auto) 59.2 % Lymph % (Auto) 23.6 % [place] % (Auto) 12.1 % Eos % (Auto) 4.2 % Baso % (Auto) 0.7 % Neut # (Auto) 2.40 (1.40-6.50) K/uL Lymph # (Auto) 0.96 L (1.20-3.40) K/uL [place] # (Auto) 0.49 (0.11-0.59) K/uL Eos # (Auto) 0.17 (0.00-0.50) K/uL Baso # (Auto) 0.03 (0.00-0.20) K/uL Immature Gran # (Auto) 0.01 (0.01-0.20) K/uL PT 10.7 (9.0-12.0) Seconds INR 1.0 (0.9-1.1) APTT 26 (21-31) Seconds PTT Ratio 1.0 D-Dimer 220 (0-500) ug/L FEU Sodium 140 139 (136-145) mmol/L Potassium 3.8 4.6 (3.5-5.1) mmol/L Chloride 106 106 (98-107) mmol/L Carbon Dioxide 28 28 (21-32) mmol/L Anion Gap 6 5 (3-11) BUN 10 16 (6-23) mg/dl Creatinine 0.60 0.86 (0.6-1.4) mg/dl Est Cr Clr Drug Dosing 116.2 81.1 ml/min eGFR 104.49 93.73 BUN/Creatinine Ratio 16.7 18.6 (10-20) Glucose 86 97 (70-99(Fasting)) mg/dl Calcium 8.9 9.2 (8.6-10.3) mg/dl Total Bilirubin 0.6 0.5 (0.2-1.0) mg/dl Direct Bilirubin 0.1 (0-0.2) mg/dl AST 14 16 (13-39) U/L ALT 14 15 (7-52) U/L Alkaline Phosphatase 45 50 (34-104) U/L Troponin I High Sens 6.9 8.9 (0-20) pg/ml Total Protein 6.0 6.4 (6.0-8.3) gm/dl Albumin 3.7 4.0 (3.4-5.0) gm/dl Globulin 2.4 L (2.5-4.0) gm/dl Albumin/Globulin Ratio 1.7 (0.9-2) TSH 1.354 (0.300-4.500) uIu/ml Diagnostic Findings Chest X-Ray 05/02/24 15:26 XR chest 1V not portable HISTORY: 68 years-old Male Chest pain, nonspecific COMPARISON: 11/15/2021 TECHNIQUE: PA view the chest FINDINGS: Cardiac silhouette is normal in size. Lungs appear clear. No pneumothorax or pleural effusion. Spondylotic spurring of the spine. IMPRESSION: No acute process of the chest. ACT 112: Negative or not required by law. The above report was generated using voice recognition software. It may contain grammatical, syntax or spelling errors. Electronically signed by: Chang Sarmiento M.D. 05/02/2024 3:58 PM Abdomen/Pelvis CT 05/02/24 16:49 EXAM: CT Abdomen and Pelvis With Intravenous Contrast INDICATION: Intermittent upper abdominal pain. TECHNIQUE: Axial computed tomography images of the abdomen and pelvis with intravenous contrast. Sagittal and coronal reformatted images were created and reviewed. This CT exam was performed using one or more of the following dose reduction techniques: automated exposure control, adjustment of the mA and/or kV according to patient size, and/or use of iterative reconstruction technique. CONTRAST: 94ml of Optiray 320 was administered intravenously. COMPARISON: 11/01/2021 FINDINGS: Limitations: None. Lung bases: No abnormality noted. Pleural space: No visualized pleural effusion or pneumothorax. Heart: No abnormality noted. Mediastinum: No abnormality noted. ABDOMEN: Liver: No abnormality noted. Gallbladder and bile ducts: The gallbladder is mildly distended and thickened. There is mild thickening of the common bile duct without distention. No no calcified stones in the gallbladder or common bile duct. Pancreas: Homogeneous enhancement. No mass, inflammation or ductal dilation. Spleen: No significant abnormality noted. Adrenals: No significant abnormality noted. Kidneys and ureters: Simple bilateral renal cysts noted. No follow-up necessary. No stones or hydronephrosis. Mild bilateral renal cortical scarring. No stones or hydronephrosis. Stomach and bowel: Moderate amounts of colonic stool in the redundant colon. No obstruction, inflammation or intestinal thickening. PELVIS: Appendix: No findings to suggest acute appendicitis. Bladder: No filling defects to suggest mass or large stone. No inflammation. Reproductive: No abnormalities noted. ABDOMEN and PELVIS: Intraperitoneal space: No free air. No significant fluid collection. Bones/joints: Intact posterior L3-S1 spinal fusion rods and pedicle screws. Degenerative changes noted in the spine. No acute osseous abnormality. Soft tissues: No significant abnormality noted. Vasculature: There is mild atherosclerotic calcification in the ectatic aorta and branches. No aneurysm or dissection. Lymph nodes: No pathologically enlarged lymph nodes. IMPRESSION: 1. Abnormal gallbladder and common bile duct most concerning for acute cholecystitis and possible cholangitis. Ultrasound recommended to further assess. 2. Moderate stool throughout the redundant colon without obstruction. ACT 112: Negative or not required by law. Electronically signed by Radha Renteria 05-02-2024 5:51 PM Gallbladder Ultrasound 05/02/24 18:04 Exam(s): US GALLBLADDER EXAM: US Abdomen Limited, Right Upper Quadrant CLINICAL HISTORY: Reason for exam: ro manny. TECHNIQUE: Real-time ultrasound of the right upper quadrant with image documentation. COMPARISON: CT May 02, 2024 FINDINGS: Liver: Unremarkable. No mass. Gallbladder: Gallbladder is distended with mild mucosal thickening. No sonographically evident stone. Negative Rucker's. Common bile duct: Common bile duct is 4 mm. Pancreas: Pancreas is obscured by shadowing bowel gas. Right kidney: Unremarkable. No hydronephrosis. IMPRESSION: Gallbladder is distended with mild mucosal thickening. No sonographically evident stone. Negative Rucker's. Electronically signed by: Arash Rodriguez MD 05/02/24 21:20 PM
--- NOTE | 2024-05-03 10:02 | Hospitalist Progress Note ---
Date of Service May 03, 2024 Assessment & Plan (1) Abdominal pain: (2) Constipation: (3) Chest pain: (4) Hypertension: (5) Hyperlipidemia: Plan 68-year-old male with past medical history of hypertension, hyperlipidemia, prediabetes presents with 8 days of intermittent abdominal pain with radiation to his chest #Abdominal pain #Constipation #Hiatal hernia CT of the abdomen pelvis on admission shows abnormal gallbladder and common bile duct most concerning for acute cholecystitis and possible cholangitis. Moderate stool throughout the redundant colon without obstruction. Ultrasound of the gallbladder showed gallbladder is distended with mild mucosal thickening. No sonographic evidence of stone. Negative Rucker's. Patient was seen by GI: They are concerned about his chest pain and requesting cardiology consult GI has started him on mag citrate x 1 dose TSH is 1.354 Senna plus MiraLAX Protonix 40 mg p.o. daily #Chest pain EKG without any ischemic changes Troponin has been negative x 2 Doubt if this is cardiac in origin but GI has recommended cardiology consult Cardiology consulted: Await recommendations #Essential hypertension #Hyperlipidemia Patient has intentionally lost weight and blood pressure and cholesterol are controlled with diet at this point Outpatient follow-up with PCP CODE STATUS: Full code DVT prophylaxis: Patient is ambulatory Discharge planning likely in the next 24 hours based on cardiology and GI recommendations Care plan discussed with patient, nursing staff and updated at bedside Admission and Anticipated Discharge Date Admission Date: May 02, 2024 Subjective Patient seen and examined H&P reviewed Labs reviewed Radiology reviewed is at bedside Patient currently denies any chest pain or shortness of breath. Patient denies any nausea, vomiting, diarrhea, abdominal pain. He has not had a bowel movement in 2 days. He tends to be constipated and has very small bowel movements. Patient tells me that he has been belching and then when he belches he then experiences a sharp pain on his left side of the chest which then radiates into his left shoulder and his left jaw without any shortness of breath. Patient is not on PPI at home. He does have a hiatal hernia Patient has lost about 4 pounds of weight since and prior to that intentional weight loss of over 40 pounds to get his A1c and blood pressure under better control He denies any fever, chills, urinary symptoms, cough Social history: Smokes cigars 2-3 times a week when he is fishing, drinks 2 to 3 glasses of wine a week, retired, independent of ADLs. Lives with Physical Exam Physical Exam: General: No acute distress Psych: Awake and alert HEENT: Anicteric sclera, moist oral mucosa CVS: Regular rate and rhythm Lungs: Bilateral air entry, no wheezing noted Abdomen: Soft, nontender, no rebound, no guarding Ext: No lower extremity edema, no calf tenderness Neuro: No focal motor deficits noted Results & Data Results & Data Vital Signs (Past 12 Hours) Vital Signs Temp Pulse Pulse Pulse Resp BP BP 05/03/24 07:56 36.3 C L 65 17 115/73 05/03/24 07:27 36.5 C 48 L 16 117/22 L 05/02/24 23:08 36.3 C L 55 L 16 161/79 H 05/02/24 23:05 05/02/24 22:36 36.6 C 62 18 126/68 Pulse Ox O2 Del Method 05/03/24 07:56 96 Room Air 05/03/24 07:27 96 Room Air 05/02/24 23:08 95 Room Air 05/02/24 23:05 Room Air 05/02/24 22:36 99 Room Air Laboratory Results Laboratory Results - last 24 hr 05/02/24 05/03/24 15:30 06:27 WBC 4.06 L 5.45 RBC 4.74 4.69 L Hgb 15.2 14.6 Hct 44.7 43.4 MCV 94.3 92.5 MCH 32.1 31.1 MCHC 34.0 33.6 RDW Std Deviation 43.0 42.1 RDW Coeff of Soheila 12.3 12.4 Plt Count 215 198 MPV 9.6 9.6 Immature Gran % (Auto) 0.2 Neut % (Auto) 59.2 Lymph % (Auto) 23.6 [place] % (Auto) 12.1 Eos % (Auto) 4.2 Baso % (Auto) 0.7 Neut # (Auto) 2.40 Lymph # (Auto) 0.96 L [place] # (Auto) 0.49 Eos # (Auto) 0.17 Baso # (Auto) 0.03 Immature Gran # (Auto) 0.01 PT 10.7 INR 1.0 APTT 26 PTT Ratio 1.0 D-Dimer 220 Sodium 139 140 Potassium 4.6 3.8 Chloride 106 106 Carbon Dioxide 28 28 Anion Gap 5 6 BUN 16 10 Creatinine 0.86 0.60 Est Cr Clr Drug Dosing 81.1 116.2 eGFR 93.73 104.49 BUN/Creatinine Ratio 18.6 16.7 Glucose 97 86 Calcium 9.2 8.9 Total Bilirubin 0.5 0.6 Direct Bilirubin 0.1 AST 16 14 ALT 15 14 Alkaline Phosphatase 50 45 Troponin I High Sens 8.9 6.9 Total Protein 6.4 6.0 Albumin 4.0 3.7 Globulin 2.4 L Albumin/Globulin Ratio 1.7 TSH 1.354 Diagnostic Findings Chest X-Ray 05/02/24 15:26 XR chest 1V not portable HISTORY: 68 years-old Male Chest pain, nonspecific COMPARISON: 11/15/2021 TECHNIQUE: PA view the chest FINDINGS: Cardiac silhouette is normal in size. Lungs appear clear. No pneumothorax or pleural effusion. Spondylotic spurring of the spine. IMPRESSION: No acute process of the chest. ACT 112: Negative or not required by law. The above report was generated using voice recognition software. It may contain grammatical, syntax or spelling errors. Electronically signed by: Chang Sarmiento M.D. 05/02/2024 3:58 PM Abdomen/Pelvis CT 05/02/24 16:49 EXAM: CT Abdomen and Pelvis With Intravenous Contrast INDICATION: Intermittent upper abdominal pain. TECHNIQUE: Axial computed tomography images of the abdomen and pelvis with intravenous contrast. Sagittal and coronal reformatted images were created and reviewed. This CT exam was performed using one or more of the following dose reduction techniques: automated exposure control, adjustment of the mA and/or kV according to patient size, and/or use of iterative reconstruction technique. CONTRAST: 94ml of Optiray 320 was administered intravenously. COMPARISON: 11/01/2021 FINDINGS: Limitations: None. Lung bases: No abnormality noted. Pleural space: No visualized pleural effusion or pneumothorax. Heart: No abnormality noted. Mediastinum: No abnormality noted. ABDOMEN: Liver: No abnormality noted. Gallbladder and bile ducts: The gallbladder is mildly distended and thickened. There is mild thickening of the common bile duct without distention. No no calcified stones in the gallbladder or common bile duct. Pancreas: Homogeneous enhancement. No mass, inflammation or ductal dilation. Spleen: No significant abnormality noted. Adrenals: No significant abnormality noted. Kidneys and ureters: Simple bilateral renal cysts noted. No follow-up necessary. No stones or hydronephrosis. Mild bilateral renal cortical scarring. No stones or hydronephrosis. Stomach and bowel: Moderate amounts of colonic stool in the redundant colon. No obstruction, inflammation or intestinal thickening. PELVIS: Appendix: No findings to suggest acute appendicitis. Bladder: No filling defects to suggest mass or large stone. No inflammation. Reproductive: No abnormalities noted. ABDOMEN and PELVIS: Intraperitoneal space: No free air. No significant fluid collection. Bones/joints: Intact posterior L3-S1 spinal fusion rods and pedicle screws. Degenerative changes noted in the spine. No acute osseous abnormality. Soft tissues: No significant abnormality noted. Vasculature: There is mild atherosclerotic calcification in the ectatic aorta and branches. No aneurysm or dissection. Lymph nodes: No pathologically enlarged lymph nodes. IMPRESSION: 1. Abnormal gallbladder and common bile duct most concerning for acute cholecystitis and possible cholangitis. Ultrasound recommended to further assess. 2. Moderate stool throughout the redundant colon without obstruction. ACT 112: Negative or not required by law. Electronically signed by Radha Renteria 05-02-2024 5:51 PM Gallbladder Ultrasound 05/02/24 18:04 Exam(s): US GALLBLADDER EXAM: US Abdomen Limited, Right Upper Quadrant CLINICAL HISTORY: Reason for exam: ro manny. TECHNIQUE: Real-time ultrasound of the right upper quadrant with image documentation. COMPARISON: CT May 02, 2024 FINDINGS: Liver: Unremarkable. No mass. Gallbladder: Gallbladder is distended with mild mucosal thickening. No sonographically evident stone. Negative Rucker's. Common bile duct: Common bile duct is 4 mm. Pancreas: Pancreas is obscured by shadowing bowel gas. Right kidney: Unremarkable. No hydronephrosis. IMPRESSION: Gallbladder is distended with mild mucosal thickening. No sonographically evident stone. Negative Rucker's. Electronically signed by: Arash Rodriguez MD 05/02/24 21:20 PM PG Care Time/CCT Total # of Minutes Spent Total Time Spent with Patient: Total time spent is greater than 50% in coordination of care (as documented) at patient's floor/unit and/or counseling patient: Coding Level of Care Code 76510 SUB INP/OBS CARE 3/50MIN Diagnoses Abdominal pain R10.9 Constipation K59.00 Constipation type: unspecified constipation type Chest pain R07.9 Chest pain type: unspecified Hypertension I10 Hyperlipidemia E78.5 (2) Constipation Constipation type: unspecified constipation type Qualified Code(s): K59.00 - Constipation, unspecified (3) Chest pain Chest pain type: unspecified Qualified Code(s): R07.9 - Chest pain, unspecified
[2024-05-03] MEDS: MAGNESIUM HYDROXIDE SUSP 30 ML UDC PO ONE (10:11)
[2024-05-03] MEDS: SENNA 8.6 MG TAB PO SCH (10:11)
[2024-05-03] MEDS: MAGNESIUM CITRATE 296 ML/BTL PO STA (10:58)
--- NOTE | 2024-05-03 12:16 | Cardiology Consultation ---
Date of Consultation May 03, 2024 Assessment & Plan (1) Abdominal pain: (2) Chest pain: (3) Hiatal hernia: Plan 68-year-old man with minimal vascular risk factors (age/gender) who presented with abdominal pain which migrates to his chest and neck. Absence of ECG or troponin abnormalities during symptoms strongly weighs against cardiac etiology. Absence of symptoms at high workload (40 minutes on elliptical) makes even occult coronary artery disease unlikely and obviates the need for a stress test (since he is regularly undergoing stress test with each elliptical session). Suspect his chest/neck symptoms are esophageal spasm related to his underlying hiatal hernia, agree with at least temporary use of proton pump inhibitor to address. We reviewed the characteristics of anginal type chest discomfort, should he have any exertional symptoms, epiphenomenon, drop in exercise tolerance, or similar concerns he will seek further evaluation. All of his vascular risk factors are well addressed (non-smoker, exercises, weight favorable, normotensive, no diabetes, favorable lipid profile). From my standpoint, no need to move to telemetry and no additional cardiac workup planned at this time. Will sign off, please contact if change in clinical status or additional co ncerns. History of Present Illness Reason for Consultation: chest pain, GI recommended cardiology Requesting Physician: Yuriy Huynh MD Attending Physician: Yuriy Huynh MD History of Present Illness 68-year-old generally healthy man with no prior cardiac history and minimal vascular risk factors (age/gender) who was admitted 05/02/2024 with abdominal discomfort, there was some concern of potential cardiac involvement given his symptoms sometimes migrate to his chest and neck. He notes that ever since a COVID infection last year he has had minor gastrointestinal complaints including increased bloating, constipation, and occasional reflux. He lost a considerable amount of weight in recent years, as result his reflux symptoms have been generally quiescent and he requires no ongoing medication. Last week around he noted an increase in abdominal bloating and discomfort with increased "gas" followed by frequent eructation at night. Although his symptoms initially began in the left lower quadrant they can migrate to the upper quadrants, anterior chest, neck and shoulders. The symptoms invariably occur at rest, he is quite physically active and has noted no exertional symptoms. Specifically, he uses his elliptical sports athletic trainer for 40 minutes at a time, he was last on this several days ago and had no chest or abdominal symptoms and felt well. Of note, this was after the onset of his abdominal/chest discomfort at rest. ER evaluation here showed unremarkable ECG and negative troponin x 2 (at the time of symptoms). Review of vascular risk factors: Age Gender No family history of premature CAD Excellent lipid profile with cholesterol/HDL ratio 2.8 Non-smoker Favorable weight Exercises regularly No diabetes Prior mild hypertension resolved with weight loss He noted some mild abdominal bloating and anterior chest discomfort at the time of my evaluation this morning, no other somatic complaints. Allergies Allergy/AdvReac Type Severity Reaction Status Date / Time amoxicillin [From Augmentin] AdvReac Intermediate nausea & Verified 05/02/24 14:41 vomiting clavulanic acid AdvReac Intermediate nausea & Verified 05/02/24 14:41 [From Augmentin] vomiting Home Medications Medication Instructions Recorded Confirmed Type acetaminophen 500 mg tablet 500 - 1,000 mg PO DAILY PRN pain 02/12/23 05/02/24 History ibuprofen 200 mg tablet (Advil) 200 - 400 mg PO DAILY PRN Pain 02/12/23 05/02/24 History Antacid 1 tab PO DIRECTED PRN heart burn 05/02/24 05/02/24 History Patient History Medical History Right sided abdominal pain Right flank pain Low vitamin B12 level Retinal detachment Surgical History H/O right inguinal hernia repair (11/10/21) Open Right Inguinal Hernia Repair With Mesh(Right) - Korey Arcos MD, FACS Hx of colonoscopy with polypectomy S/P epidural steroid injection [place] teeth removed H/O eye surgery BILATERAL TO "FIX FLOATERS" H/O right knee surgery H/O eye surgery RT History of detached retina repair LT H/O bilateral cataract extraction Family History Grandfather (Maternal) Myocardial infarction Father Prostate cancer Cerebral artery occlusion Mother Alzheimer disease Dementia Other No family history of adverse response to anesthesia Denies family history of Colon cancer Ovarian cancer Breast cancer Social History Smoking Status: Light tobacco smoker Tobacco Type: Pipe Cigarettes Per Day: CIGAR USE 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; Second Hand Exposure: Yes; Do You Dip or Chew Tobacco: No; Hx Alcohol Use: Yes Alcohol type: wine Alcohol type Comment: 1-2 liters a week Alcohol Intake Frequency: 4 or More x per/Week Alcohol Intake Frequency Comment: socially Hx Substance Use: No Preferred Language: [place]uran Communication Ability: Effective Visual Impairment: No Limitations Hearing Ability: Normal Nursing Administrator Required: No Beliefs That Will Affect Care: None marital status: Current Living Situation: Spouse current occupational status: retired current occupation: Works for [employer] at a [employer] job How many Children do You have: 1 Feels Safe at Home: Yes Safety Concerns: Feels Safe At This Time Childhood Exposure to Second-Hand Smoke: Yes Diet: regular during the past year weight has: decreased > 10 lbs Dental Care, Regularly: Yes Physical Activity Frequency: 5-6 Times per Week Seatbelt Use: always Sunscreen Use: No Assistive Devices: Glasses Physical Exam Physical Exam: No distress. Afebrile. BP normotensive. Pulse 65 bpm and regular. Respirations 17 unlabored. Skin: no ecchymoses or generalized lesions. HEENT: unremarkable. Neck: JVP at the clavicle at 90 degrees, no carotid bruits. Lungs: clear. Cardiac: regular rhythm, normal S1-2, no murmur. Abdomen: Mild bilateral lower abdominal tenderness, nondistended. No organomegaly. No guarding or rigidity Extremities: no edema, pulses intact. Neurologic: normal affect and conversation, nonfocal. Results & Data Vital Signs (Past 12 Hours) Vital Signs Temp Pulse Pulse Resp BP Pulse Ox O2 Del Method 05/03/24 07:56 97.3 F L 65 17 115/73 96 Room Air 05/03/24 07:27 97.7 F 48 L 16 117/22 L 96 Room Air Laboratory Results Troponin negative x 2. Unremarkable CBC. Normal electrolytes, BUN 10, creatinine 0.6. Normal glucose. Normal TSH. Diagnostic Findings ECG showed sinus bradycardia 55 bpm and was otherwise unremarkable. No change compared with 2021 study. Chest x-ray unremarkable. Chest CT showed no pulmonary embolism. There was an abnormal gallbladder, gallbladder ultrasound showed distention with mild thickening but no stones and negative Rucker sign. PG Care Time/CCT Total # of Minutes Spent Total Time Spent with Patient: Total time spent is greater than 50% in coordination of care (as documented) at patient's floor/unit and/or counseling patient: Coding Level of Care Code 13550 IN/OBS CONSULT LVL 4,60M Diagnoses Abdominal pain R10.9 Chest pain R07.9 Chest pain type: unspecified Hiatal hernia K44.9 (2) Chest pain Chest pain type: unspecified Qualified Code(s): R07.9 - Chest pain, unspecified
[2024-05-03] MEDS: POLYETHYLENE (MIRALAX) 17 GM PACK PO STA (14:22)
[2024-05-03] MEDS: bisacodyL 5 MG TABEC PO ONE (14:22)
[2024-05-03] MEDS: bisacodyL 10 MG SUPP PR STA (14:34)
[2024-05-04 07:39] VITALS: PULSE 59; RESP 18
--- NOTE | 2024-05-04 10:07 | Gastroenterology Progress Note ---
Date of Service May 04, 2024 Assessment & Plan (1) Constipation: Plan: Doing well from abdominal standpoint. Might send him home on miralax daily. Still with chest pressure. Not a lot to do for esophageal spasm except meds like NTG prn, procardia on a regular basis or levsin SL prn. Could send him home with a trial of PPI to see if it helps. Suggested to him that he follow up with Dr. Grewal et al when he is discharged. Admission and Anticipated Discharge Date Admission Date: May 02, 2024 Subjective Patient had good response to mag citrate. Still has "gurgling" but no bloating and no abdominal cramping pains. Did have "chest pressure" last night. Denies heartburn and hasn't had much in the way of heartburn since dietary changes implemented several years ago. Cardiology thinks it is not his heart. Physical Exam Physical Exam: He looks well Results & Data Vital Signs (Past 12 Hours) Vital Signs Temp Pulse Resp BP Pulse Ox O2 Del Method 05/04/24 07:37 36.4 C L 59 L 18 134/81 96 Room Air (1) Constipation Constipation type: unspecified constipation type Qualified Code(s): K59.00 - Constipation, unspecified
[2024-05-04 12:41] VITALS: BP 145/88; TEMP 98.2; O2SAT 97
--- NOTE | 2024-05-04 13:56 | Discharge Summary ---
Discharge Summary Date of Service May 04, 2024 Principal Dx & Hospital Course #1 = Principal Diagnosis (1) Abdominal pain: (2) Constipation: (3) Chest pain: (4) Hypertension: (5) Hyperlipidemia: Plan 68-year-old male with past medical history of hypertension, hyperlipidemia, prediabetes presents with 8 days of intermittent abdominal pain with radiation to his chest #Abdominal pain #Constipation #Hiatal hernia CT of the abdomen pelvis on admission shows abnormal gallbladder and common bile duct most concerning for acute cholecystitis and possible cholangitis. Moderate stool throughout the redundant colon without obstruction. Ultrasound of the gallbladder showed gallbladder is distended with mild mucosal thickening. No sonographic evidence of stone. Negative Rucker's. Patient was seen by GI: They are concerned about his chest pain and requesting cardiology consult TSH is 1.354 Patient was seen by cardiology per GI recommendations and as per cardiology chest pain is noncardiac and no need for further cardiac workup GI gave the patient 1 bottle of mag citrate and he was also started on MiraLAX and senna Patient has a few bowel movements with improvement in his symptoms GI has recommended continuing PPI and outpatient follow-up with Dr. Grewal from GI on discharge Patient also can be discharged on laxatives per GI recommendations I have discussed constipation and use of laxatives with the patient and also I discussed PPI: Protonix: Risks, benefits and side effects explained to patient and verbalized understanding them: Patient to follow-up with GI to review need for continuing PPI and any further interventions as outpatient. #Chest pain EKG without any ischemic changes Troponin has been negative x 2 In the absence of EKG changes, troponin abnormalities during symptoms, cardiology felt this strongly raise against cardiac etiology. Patient also works out 40 minutes on elliptical. Cardiology suspects his symptoms were esophageal spasm related from his underlying hiatal hernia and agree with temporary use of proton pump inhibitor. From cardiology point of view, no need for telemetry or additional cardiac workup at this point #Essential hypertension #Hyperlipidemia Patient has intentionally lost weight and blood pressure and cholesterol are controlled with diet at this point Outpatient follow-up with PCP Patient seen and examined today. He denies any chest pain or shortness of breath. His abdominal symptoms have improved after having a few bowel movements. He is tolerating oral diet without any nausea vomiting and he is stable for discharge home. I have gone over the discharge care plan, medications and follow-up with the patient in great detail and answered all his questions. This discharge to greater than 30 minutes to coordinate Admission HPI Per Admitting Provider Chinedu Das is a pleasant 68yo male with history of HTN, HLP and impaired fasting glucose presenting with abdominal pain, bloating. Patient reports that over the last 8 days he has been experiencing frequent episodes of lower abdominal discomfort which he feels to be gas pains. The discomfort at times involves his left chest, shoulder and arm as well. Discomfort in his chest is described as a squeezing pressure sensation, some shortness of breath associated with the discomfort. He has had increased eructation as well. These episodes have been occurring multiple times per day over the last 8 days. The severe pain lasts appx 5-10 minutes with complete resolution of discomfort typically within 1-2 hours. Symptoms typically occur when laying down but can occur any time during the day. No clear association to meals. Patient reports normal appetite and no change in PO intake - eats 4269-4127 calories per day Denies nausea, vomiting or diarrhea No recent GI illness but has had some mild URI symptoms - congestion ongoing for the last 2 weeks. He has had some constipation - last BM was yesterday. No new medications or supplements. He does report approximately 4# of unintentional weight loss over the last 8 days. This evening patient had severe pain in the abdomen and left chest and was unable to walk due to his discomfort. Now improved, no return of the pain since being in the ER. is at bedside and is concerned about patient going home this evening given the severity of the pain he had earlier today. Discharge Exam General: No acute distress Psych: Awake and alert HEENT: Anicteric sclera, moist oral mucosa CVS: Regular rate and rhythm Lungs: Bilateral air entry, no wheezing noted Abdomen: Soft, nontender, no rebound, no guarding Ext: No lower extremity edema, no calf tenderness Neuro: No focal motor deficits noted Discharge Plan Discharge Items Patient Disposition: Home - Self-Care Reason For Visit: ABDOMINAL PAIN Discharge Diagnosis: #Constipation #Hiatal hernia # Noncardiac chest pain #Essential hypertension #Hyperlipidemia Activity: Resume your previous activity Non-emergency contact: Primary Care Provider Call non-emergency contact if: you have any medication questions, your symptoms worsen, your pain is worsening and you have a fever Follow-up/Referrals: Chad Grewal DO [Physician] - Pro,Derick Sal MD [Primary Care Provider] - Diet: Heart Healthy Addtl Attending Provider Instructions: DISCHARGE INSTRUCTION TO PATIENT/FAMILY: Follow-up with your primary care provider within 1 week regarding: Posthospital discharge, medication review, medication refills and follow-up on all your medical problems Please take all your discharge medications, discharge information and discharge instructions to all your doctors appointments. Avoid all NSAIDs including ibuprofen, Motrin, Advil, Aleve, naproxen, meloxicam, Toradol, diclofenac You were seen by electronic drafter during hospital stay: Assistant Professor Of Physics has advised that you may continue Protonix 40 mg daily and follow-up with outpatient electronic drafter Dr. Grewal. Please discuss need to continue this medication with your PCP/electronic drafter upon follow-up You should have at least 2 bowel movements a day: You may continue to use laxatives as needed which are available [id number] Pending Studies at Discharge: No Stand-Alone Forms: My Soc[employer], Smoking Cessation Medications and DC Order Prescriptions: New pantoprazole 40 mg Tablet,Delayed Release (Dr/Ec) 40 mg PO DAILY Qty: 30 0RF Rx Instructions: Take 30 minutes before breakfast every day and follow-up with PCP/GI to review need to continue this medication sennosides [Senokot] 8.6 mg Tablet 17.2 mg PO HS Qty: 14 0RF Rx Instructions: Available [id number], HOLD FOR LOOSE STOOLS polyethylene glycol 3350 [Miralax] 17 gram/dose powder 17 g PO DAILY PRN (Reason: constipation) Qty: 119 0RF Rx Instructions: Available [id number], HOLD FOR LOOSE STOOLS Continued acetaminophen 500 mg Tablet 500 - 1,000 mg PO DAILY PRN (Reason: pain) Antacid 1 tab PO DIRECTED PRN (Reason: heart burn) Discontinued ibuprofen [Advil] 200 mg Tablet 200 - 400 mg PO DAILY PRN (Reason: Pain) Discharge Orders: Discharge Order (Routine); Ordered 05/04/24 Ordered By: Yuriy Quick/Other Patient Handouts: Pantoprazole Delayed Release Oral Tablet, Treating Constipation, Eating a High-Fiber Diet Admission Data Admit Date/Time: 05/02/24 21:46 Attending Provider: Yuriy Huynh Admit Provider: Jeannie Garcia Primary Care Provider: Derick Collins Other Providers: Jeannie Garcia; Vivien Winters Jr; Pako Fay Other Interventions: Discharge Summary Assessment (RN) Last Done: 05/04/24 13:38 Hospital Stay Data Consultations 05/02/24 20:55 ED Decision to Admit Stat 05/02/24 21:46 Consult Gastroenterology Routine 05/03/24 10:08 Consult Cardiology Routine Diagnostic Imagining Performed 05/02/24 16:49 CT abd pelvis IV con only Stat 05/02/24 18:04 US gallbladder Stat Chest X-Ray 05/02/24 15:26 XR chest 1V not portable HISTORY: 68 years-old Male Chest pain, nonspecific COMPARISON: 11/15/2021 TECHNIQUE: PA view the chest FINDINGS: Cardiac silhouette is normal in size. Lungs appear clear. No pneumothorax or pleural effusion. Spondylotic spurring of the spine. IMPRESSION: No acute process of the chest. ACT 112: Negative or not required by law. The above report was generated using voice recognition software. It may contain grammatical, syntax or spelling errors. Electronically signed by: Chang Sarmiento M.D. 05/02/2024 3:58 PM Abdomen/Pelvis CT 05/02/24 16:49 EXAM: CT Abdomen and Pelvis With Intravenous Contrast INDICATION: Intermittent upper abdominal pain. TECHNIQUE: Axial computed tomography images of the abdomen and pelvis with intravenous contrast. Sagittal and coronal reformatted images were created and reviewed. This CT exam was performed using one or more of the following dose reduction techniques: automated exposure control, adjustment of the mA and/or kV according to patient size, and/or use of iterative reconstruction technique. CONTRAST: 94ml of Optiray 320 was administered intravenously. COMPARISON: 11/01/2021 FINDINGS: Limitations: None. Lung bases: No abnormality noted. Pleural space: No visualized pleural effusion or pneumothorax. Heart: No abnormality noted. Mediastinum: No abnormality noted. ABDOMEN: Liver: No abnormality noted. Gallbladder and bile ducts: The gallbladder is mildly distended and thickened. There is mild thickening of the common bile duct without distention. No no calcified stones in the gallbladder or common bile duct. Pancreas: Homogeneous enhancement. No mass, inflammation or ductal dilation. Spleen: No significant abnormality noted. Adrenals: No significant abnormality noted. Kidneys and ureters: Simple bilateral renal cysts noted. No follow-up necessary. No stones or hydronephrosis. Mild bilateral renal cortical scarring. No stones or hydronephrosis. Stomach and bowel: Moderate amounts of colonic stool in the redundant colon. No obstruction, inflammation or intestinal thickening. PELVIS: Appendix: No findings to suggest acute appendicitis. Bladder: No filling defects to suggest mass or large stone. No inflammation. Reproductive: No abnormalities noted. ABDOMEN and PELVIS: Intraperitoneal space: No free air. No significant fluid collection. Bones/joints: Intact posterior L3-S1 spinal fusion rods and pedicle screws. Degenerative changes noted in the spine. No acute osseous abnormality. Soft tissues: No significant abnormality noted. Vasculature: There is mild atherosclerotic calcification in the ectatic aorta and branches. No aneurysm or dissection. Lymph nodes: No pathologically enlarged lymph nodes. IMPRESSION: 1. Abnormal gallbladder and common bile duct most concerning for acute cholecystitis and possible cholangitis. Ultrasound recommended to further assess. 2. Moderate stool throughout the redundant colon without obstruction. ACT 112: Negative or not required by law. Electronically signed by Radha Renteria 05-02-2024 5:51 PM Gallbladder Ultrasound 05/02/24 18:04 Exam(s): US GALLBLADDER EXAM: US Abdomen Limited, Right Upper Quadrant CLINICAL HISTORY: Reason for exam: ro manny. TECHNIQUE: Real-time ultrasound of the right upper quadrant with image documentation. COMPARISON: CT May 02, 2024 FINDINGS: Liver: Unremarkable. No mass. Gallbladder: Gallbladder is distended with mild mucosal thickening. No sonographically evident stone. Negative Rucker's. Common bile duct: Common bile duct is 4 mm. Pancreas: Pancreas is obscured by shadowing bowel gas. Right kidney: Unremarkable. No hydronephrosis. IMPRESSION: Gallbladder is distended with mild mucosal thickening. No sonographically evident stone. Negative Rucker's. Electronically signed by: Arash Rodriguez MD 05/02/24 21:20 PM Laboratory Results - last 48 hr 05/02/24 05/03/24 15:30 06:27 WBC 4.06 L 5.45 RBC 4.74 4.69 L Hgb 15.2 14.6 Hct 44.7 43.4 MCV 94.3 92.5 MCH 32.1 31.1 MCHC 34.0 33.6 RDW Std Deviation 43.0 42.1 RDW Coeff of [place] 12.3 12.4 Plt Count 215 198 MPV 9.6 9.6 Immature Gran % (Auto) 0.2 Neut % (Auto) 59.2 Lymph % (Auto) 23.6 [place] % (Auto) 12.1 Eos % (Auto) 4.2 Baso % (Auto) 0.7 Neut # (Auto) 2.40 Lymph # (Auto) 0.96 L [place] # (Auto) 0.49 Eos # (Auto) 0.17 Baso # (Auto) 0.03 Immature Gran # (Auto) 0.01 PT 10.7 INR 1.0 APTT 26 PTT Ratio 1.0 D-Dimer 220 Sodium 139 140 Potassium 4.6 3.8 Chloride 106 106 Carbon Dioxide 28 28 Anion Gap 5 6 BUN 16 10 Creatinine 0.86 0.60 Est Cr Clr Drug Dosing 81.1 116.2 eGFR 93.73 104.49 BUN/Creatinine Ratio 18.6 16.7 Glucose 97 86 Calcium 9.2 8.9 Total Bilirubin 0.5 0.6 Direct Bilirubin 0.1 AST 16 14 ALT 15 14 Alkaline Phosphatase 50 45 Troponin I High Sens 8.9 6.9 Total Protein 6.4 6.0 Albumin 4.0 3.7 Globulin 2.4 L Albumin/Globulin Ratio 1.7 TSH 1.354 Pending Results Patient Have Any Pending Studies at Discharge: No Discharge Instructions Given to Patient (Per Discharging Provider) DISCHARGE INSTRUCTION TO PATIENT/FAMILY: Follow-up with your primary care provider within 1 week regarding: Posthospital discharge, medication review, medication refills and follow-up on all your medical problems Please take all your discharge medications, discharge information and discharge instructions to all your doctors appointments. Avoid all NSAIDs including ibuprofen, Motrin, Advil, Aleve, naproxen, meloxicam, Toradol, diclofenac You were seen by electronic drafter during hospital stay: Assistant Professor Of Physics has advised that you may continue Protonix 40 mg daily and follow-up with outpatient electronic drafter Dr. Grewal. Please discuss need to continue this medication with your PCP/electronic drafter upon follow-up You should have at least 2 bowel movements a day: You may continue to use laxatives as needed which are available [id number] Total Time Total Time Spent Total Time Spent (In Minutes): 35 minutes Coding Level of Care Code 48222 INP/OBS DISCH >30 MIN Diagnoses Abdominal pain R10.9 Constipation K59.00 Constipation type: unspecified constipation type Chest pain R07.9 Chest pain type: unspecified Hypertension I10 Hyperlipidemia E78.5
== END 2024-05-04 14:58 | disposition home or self-care (01) ==
LOC: ED 15:19 → 3E 15:19 → SUATTDRO 21:46 → 3E 22:36